=== PATIENT | male | born 1965 | race Caucasian/White ===

== ENCOUNTER 2017-06-13 23:56 | Emergency (ER) | payer OTHER ==
[~2017-06-13] VITALS: Ht 188 cm; Wt 98.0 kg
--- NOTE | 2017-06-14 00:26 | ED NOSE COMPLAINT ---
History of Present Illness General Chief Complaint: Epistaxis/Nasal Foreign Body Stated Complaint: PT C/O EPISTAXIS NOT ON THINNERS Source: patient Exam Limitations: no limitations Vital Signs & Intake/Output Vital Signs & Intake/Output Vital Signs Date Time Temp Pulse Resp B/P B/P Pulse O2 O2 Flow FiO2 Mean Ox Delivery Rate 06/14 0126 96.5 72 18 140/71 97 Room Air 06/14 0016 96.2 69 16 144/77 96 Room Air Room Air Allergies Coded Allergies: NO KNOWN ALLERGIES (01/19/13) Triage Note: 52YO MALE TO TRIAGE W/CO R NOSEBLEED SINCE THIS AM. STATES HE WENT TO WALKIN THIS AM, BLEEDING STOPPED AND TONITE BLEED ING RETURNED 1/2HR AGO. STATES NOT ON ANY MEDS. Triage Nurses Notes Reviewed? yes Onset: Abrupt Duration: day(s): Timing: recent history Injury Environment: home Severity: mild Modifying Factors: Improves With: rest. Associated Symptoms: bloody nose x 1 day HPI: 52 yo gentleman presents with bleeding from his right nare x 1 day. He notes, "several times it would start to bleed" without clots, dizziness, sinus pain. He notes that the air in his condo is dry. He is otherise well. Past History Travel History Traveled to [place] past 21 day No Medical History Any Pertinent Medical History? 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 No Review of Systems Review of Systems Constitutional: Reports: no symptoms. EENTM: Reports: no symptoms. Respiratory: Reports: no symptoms. Cardiovascular: Reports: no symptoms. GI: Reports: no symptoms. Genitourinary: Reports: no symptoms. Musculoskeletal: Reports: no symptoms. Skin: Reports: no symptoms. Neurological/Psychological: Reports: no symptoms. Hematologic/Endocrine: Reports: no symptoms. Immunologic/Allergic: Reports: no symptoms. All Other Systems: Reviewed and Negative Physical Exam Physical Exam General Appearance: well developed/nourished, mild distress Head: atraumatic, normal appearance Eyes: Bilateral: normal appearance. Nose: moist blood in right nare, no active bleeding Mouth/Throat: normal mouth inspection Neck: normal inspection, supple, full range of motion Cardiovascular/Respiratory: normal breath sounds Back: normal inspection Neurologic/Psych: no motor/sensory deficits, awake, alert, oriented x 3 Skin: intact, normal color, warm/dry Progress Differential Diagnoses I considered the following diagnoses in my evaluation of the patient: epistaxis vs other. Plan of Care: nasal sponge place in anterior septum. pressure with [id number] x 20 minutes... then observed for 30 minutes.... no active bleeding in ED.... pt safe for discharge and will remove nasal sponge in AM, follow up with ENT, pt to return to ED if bleeding resumes. Initial ED EKG: none Departure Departure Disposition: HOME OR SELF CARE Condition: Stable Clinical Impression Primary Impression: Epistaxis Referrals: Patient Has No Primary Care Dr (PCP/Family) Departure Forms: Customer Survey General Discharge Information
[2017-06-14 01:26] VITALS: BP 140/71
== END 2017-06-14 01:29 ==
LOC: ERH 23:56
DX: R04.0 Epistaxis (principal)